=== PATIENT | female | born 1990 | race Caucasian/White ===

== ENCOUNTER 2024-08-30 15:29 | Emergency (ER) | payer MEDICAID, SELFPAY ==
[2024-08-30 15:57] VITALS: BP 108/66; PULSE 52; RESP 16; TEMP 37.1; O2SAT 99; BMI 26.1
[2024-08-30 16:15] VITALS: BP 129/95; PULSE 68; RESP 16; O2SAT 95
--- NOTE | 2024-08-30 16:16 | W.ED.ANIMALB ---
HPI - Animal Bite General: Chief Complaint: Animal Bite Stated Complaint: animal bite rt index finger Time Seen by Provider: 08/30/24 16:07 History of Present Illness: 34-year-old female who presents to the emergency room complaining of a cat bite to her right index finger occurred yesterday. She was seen in outpatient clinic locally where she had her tetanus shot and was prescribed some antibiotics just before coming to the ER she has not yet picked them up she is unsure what they are. The cat was unknown to her it was a stray she tried to pickling solution maker when it bit her finger. She presents here to initiate her rabies vaccinations. Associated symptoms: Reports chills and fever(s) Related Data Home Medications ?Medication ?Instructions ?Recorded ?Confirmed No Known Home Medications 08/30/24 08/30/24 Allergies Allergy/AdvReac Type Severity Reaction Status Date / Time No Known Allergies Allergy Verified 08/30/24 16:01 Review of Systems Const: Reports: fever(s) and chills Physical Exam Extremity: OTHER: Right index finger moderately swollen multiple puncture wounds no drainage no lymphatic streaking no epitrochlear or axillary lymph nodes noted Course Vital Signs: Vital signs: Vital Signs Temperature 98.8 F 08/30/24 15:57 Pulse Rate 84 08/30/24 16:45 Respiratory Rate 16 08/30/24 16:15 Blood Pressure 98/66 08/30/24 16:45 Pulse Oximetry 97 08/30/24 16:45 Oxygen Delivery Me thod Room Air 08/30/24 16:15 MDM - Animal Bite Medical Decision Making Rabies immunoglobulin and vaccine given. Patient given schedule for the remainder of the vaccinations. No radiology studies performed this visit Discharge Plan Discharge Patient Disposition: Home Clinical Impression: Cat bite, Need for post exposure prophylaxis for rabies Condition: Stable Prescriptions: No Action No Known Home Medications Discharge Orders: Discharge ED (Routine); Ordered 08/30/24 Ordered By: Hector Moore Referrals: Vijaya Bianchi FNP [Primary Care Provider] - Discharge Diet: Usual diet Discharge Activity: Resume usual activity Patient Instructions: Rabies Vaccine (By injection), Rabies Immune Globulin (By injection), Rabies (ED), Opioid Safety, Pain Management Activity Restrictions/Additional Instructions: Thank you for choosing [facility] for your healthcare needs today. It is very important that you follow up as instructed or that you return to the Emergency Department should you have concerns or if your condition changes or worsens in any way. You are seen in the emergency room after a cat bite. Since you have already been prescribed antibiotics and given a tetanus this was not addressed during your visit. I do recommend that you complete the course of antibiotics that you are prescribed at the walk-in clinic. You were started on rabies vaccination today. You were given information further remainder of the vaccine series. You should complete the full series. 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
[2024-08-30] MEDS: rabies IG 300 unit/mL SDV 1 mL 1410 UNIT IM (16:36)
[2024-08-30] MEDS: rabies vaccine 2.5 unit SDV IM (16:36)
[2024-08-30 16:45] VITALS: BP 98/66; PULSE 84; O2SAT 97
== END 2024-08-30 16:46 | disposition home or self-care (01) ==
PROVIDERS: Emergency Provider Family Medicine; PCP Registered Nurse
DX: S61.250A Open bite of right index finger without damage to nail, initial encounter (principal); W55.01XA Bitten by cat, initial encounter; Z20.3 Contact with and (suspected) exposure to rabies; Z29.14 Encounter for prophylactic rabies immune globulin
CPT/HCPCS: 90375; 90471; 90675; 96372; 99283

== ENCOUNTER 2024-09-02 15:47 | Oncology outpatient (recurring) (ONCR) | payer MEDICAID, SELFPAY ==
[2024-09-02] MEDS: rabies vaccine 2.5 unit SDV IM (16:03)
== END 2024-09-04 23:59 | disposition home or self-care (01) ==
PROVIDERS: PCP Registered Nurse; Visit Provider Family Medicine
DX: Z23 Encounter for immunization (principal); Z20.3 Contact with and (suspected) exposure to rabies; W55.01XA Bitten by cat, initial encounter
CPT/HCPCS: 90471; 90675

== ENCOUNTER → 2024-09-05 15:20 | Outpatient (BNVA) | payer MEDICAID, SELFPAY | PROVIDERS: PCP Registered Nurse; Visit Provider Obstetrics & Gynecology | DX: Z00.00 Encounter for general adult medical examination without abnormal findings (principal) | CPT/HCPCS: 87624 ==

== ENCOUNTER 2024-09-13 08:58 | Oncology outpatient (recurring) (ONCR) | payer MEDICAID, SELFPAY ==
[2024-09-06] MEDS: rabies vaccine 2.5 unit SDV IM (11:16)
[2024-09-13] MEDS: rabies vaccine 2.5 unit SDV IM (09:07)
[2024-09-13 09:16] VITALS: BP 109/71; PULSE 72; RESP 17; TEMP 37.2; O2SAT 98
== END 2024-10-05 23:59 | disposition home or self-care (01) ==
PROVIDERS: PCP Registered Nurse; Visit Provider Family Medicine
DX: Z20.3 Contact with and (suspected) exposure to rabies (principal); Z23 Encounter for immunization; S61.250A Open bite of right index finger without damage to nail, initial encounter; W55.01XA Bitten by cat, initial encounter
CPT/HCPCS: 90471; 90675

== ENCOUNTER 2025-03-25 08:14 | Day surgery (SDC) | payer MEDICAID, SELFPAY ==
[2025-03-25] VITALS (11 sets, daily range): BP systolic 94–134; BP diastolic 56–79; PULSE 53–79; RESP 16–18; TEMP 36.2–36.8; O2SAT 100; BMI 24.1
--- NOTE | 2025-03-25 00:35 | W.PM.OPSFHP ---
Same Day Surgery H&P Indication for Procedure/HPI DATE OF PROCEDURE: March 25, 2025 CHIEF COMPLAINT/INDICATIONFOR SURGICAL PROCEDURE: desires permanent sterilization; removal of intrauterine device PREOP DIAGNOSIS: desires permanent sterilization; removal of intrauterine device PLANNED PROCEDURE: Operation Date: 03/25/25 09:45 Proposed Procedures p Laparoscopic BILATERAL Salpingectomy(Bilateral) - Raffy Chappell MD Medications/Allergies* Home Medications ?Medication ?Instructions ?Recorded ?Confirmed ?Type atorvastatin 20 mg tablet (Lipitor) 20 mg PO DAILY 09/05/24 03/24/25 History bupropion HCl 150 mg 24 hr tablet, 150 mg PO QAM 09/05/24 03/24/25 History extended release (Wellbutrin XL) Allergies/Adverse Reactions Allergy/AdvReac Type Severity Reaction Status Date / Time No Known Allergies Allergy Verified 03/24/25 12:20 Pertinent History/Comorbid Conditions* Family History (Updated 09/05/24 @ 14:34 by Harriet Elaine RN) Diabetes Grandfather Heart disease Grandmother Grandfather Thyroid disease Mother Social History Smoking and tobacco/nicotine status: current every day tobacco/nicotine user Pertinent Exam Findings alert, oriented x 3, clear to auscultation bilaterally and regular rate & rhythm Recommendations Surgery/Procedure today Coding Level of Care Code Acute Code for Chg Fwd
[2025-03-25 08:59] LABS: OR HCG Qualitative Urine Negative (Negative)
--- NOTE | 2025-03-25 08:59 | ANES.PREANE2 ---
Pre-Anesthetic Assessment Height/Weight: Height 5 ft 5 in Weight 145 lb Temp Pulse Resp BP Pulse Ox O2 Del Method 98.3 F 77 16 112/63 100 Room Air 03/25/25 08:45 03/25/25 08:45 03/25/25 08:45 03/25/25 08:45 03/25/25 08:45 03/25/25 08:45 Preop Diagnosis: desires permanent sterilization Operation Date: 03/25/25 09:45 Proposed Procedures p Laparoscopic BILATERAL Salpingectomy(Bilateral) - Raffy Chappell MD Was Beta Jono taken within 24 hours: N/A Was Clonidine taken within 24 hours: N/A Last intake: Intake Last Liquid Date 03/24/25 Last Liquid Time 21:00 Last Solid Date 03/24/25 Last Solid Time 19:00 Social No alcohol and No tobacco Exam alert, oriented x 3, clear to auscultation bilaterally and regular rate & rhythm Airway Submandibular: within normal limits Cervical ROM: within normal limits Mallampati: Class II Dentition: full Anesthetic Plan ASA status: 2 Anesthesia: General Other: No prior issues with anesthesia NPO since yesterday evening Current smoker, nicotine and marijuana Denies any cardiac issues METs greater than 4 Plan for GETA Medications/Allergies Home Medications ?Medication ?Instructions ?Recorded ?Confirmed ?Last Taken ?Type atorvastatin 20 mg tablet (Lipitor) 20 mg PO DAILY 09/05/24 03/25/25 03/24/25 History bupropion HCl 150 mg 24 hr tablet, 150 mg PO QAM 09/05/24 03/25/25 03/24/25 History extended release (Wellbutrin XL) Allergies Allergy/AdvReac Type Severity Reaction Status Date / Time No Known Allergies Allergy Verified 03/24/25 12:20 Current Medications Generic Name Dose Route Start Last Admin Trade Name Freq PRN Reason Stop Dose Admin Sodium Chloride 1,000 mls @ 30 mls/hr 03/25/25 08:30 03/25/25 08:44 Sodium Chloride 0.9% IV 03/26/25 08:29 30 mls/hr .Q24H MILA Administration PFSH Anesthesia Family History (Updated 09/05/24 @ 14:34 by Harriet Elaine RN) Mother Thyroid disease Grandmother Heart disease Grandfather Heart disease Diabetes Social History Smoking and tobacco/nicotine status: current every day tobacco/nicotine user Female Reproductive History Date of last menstrual period: 03/21/25
--- NOTE | 2025-03-25 10:38 | W.PM.OPSUD ---
Surgery/Procedure H&P Update DATE OF PROCEDURE: March 25, 2025 DATE H&P PERFORMED: 03/25/25 H&P UPDATE INFORMATION: I have reviewed H&P completed within last 30 days, I have examined patient prior to procedure and No changes to prior documentation PREOP DIAGNOSIS: desires permanent sterilization PLANNED PROCEDURE: Operation Date: 03/25/25 09:45 Proposed Procedures p Laparoscopic BILATERAL Salpingectomy(Bilateral) - Raffy Chappell MD
[2025-03-25] MEDS: fentaNYL 50 mcg/mL INJ 2mL IVP (12:45)
[2025-03-25] MEDS: oxyCODONE-APAP 5-325 mg Tablet 1 TAB PO (13:12)
--- NOTE | 2025-03-25 13:40 | ANE.PACU2 ---
Inpatient post-anesthesia follow up: Airway intact: Yes Vital signs: Temperature 97.2 F Pulse Rate 61 Respiratory Rate 18 Blood Pressure 131/75 Pulse Oximetry 100 Oxygen Delivery Me thod Room Air Oxygen Flow Rate Fraction of Inspir ed Oxygen Hydration adequate: Yes Nausea and vomiting: No Pain level: 1 Mental status: Baseline
--- NOTE | 2025-03-25 14:15 | P.OP_ITS ---
Operative Report Date of procedure: March 25, 2025 Pre-op diagnosis: desires permanent sterilization wants removal of intrauterine device Post-op diagnosis: same Post-op findings: normal uterus bilateral fallopian tubes dilated with clubbed fimbriae left ovary with 4 cm clear ovarian cyst normal right ovary filmy adhesions involving the fallopian tubes and ovaries Paragard intrauterine device, complete and intact Procedure done: laparoscopic bilateral salpingectomy removal of intrauterine device Implants: none Specimens removed/disposition: bilateral fallopian tubes intrauterine device, complete and intact, discarded Surgeon: Raffy Chappell MD Flat Sorter Processor: Rm Borden MD Anesthesia: General Estimated blood loss (mL): 5 Complications: none Findings: see above Condition: stable Disposition: PACU Brief History: 34 y.o. desires permanent sterilization Procedure: Informed consent was obtained. The patient was taken to the OR and placed on the table. General endotracheal anesthesia was induced. The abdomen was then prepped and draped in the usual fashion. A 5 mm subumbilical skin incision was made. A 5 mm trocar with sheath was then inserted into the peritoneal cavity under direct visualization with the laparoscope. After confirming intraperitoneal position, pneumoperitoneum was achieved. Two separate 5 mm incisions were made in the right and left mid- quadrants. 5 mm trocars with sheaths were then inserted into the peritoneal cavity under direct visualization with the laparoscope. Uterus was seen to be normal. Bilateral fallopian tubes were noted to be mildly dilated with clubbed fimbriae and filmy adhesions to the ovaries. The left ovary was noted to have a 4 cm clear ovarian cyst. The right fallopian tube was then identified. Starting at the fimbrial end, the mesosalpinx was then coagulated and cut using the Ligasure. The right fallopian tube was excised and removed via one of the ports. This was sent to pathology. There was no bleeding seen. Similarly, the left fallopian tube was identified. The left fallopian tube was excised and removed, sent to pathology. There was no bleeding. All instruments were then removed from the peritoneal cavity after the pneumoperitoneum was allowed to escape. The skin incisions were closed using 4- O monocryl in subcuticular fashion. Dermabond was applied. The patient was then placed in lithotomy position. A speculum was placed in the vagina. The intrauterine device string was identified and the intrauterine device was removed complete and discarded. The patient was then placed supine and awakened, taken the the PACU in good condition. Postop condition: stable EBL: 5 cc Complications: none Sponge, needles, and instruments counts correct x two
== END 2025-03-25 13:40 | disposition home or self-care (01) ==
PROVIDERS: Student in an Organized Health Care Education/Training Program; PCP Family Medicine; Visit Provider Obstetrics & Gynecology
PROC: (CPT 58661; principal; 2025-03-25 09:35)
PROC: 0UPD8HZ Removal of Contraceptive Device from Uterus and Cervix, Via Natural or Artificial Opening Endoscopic (ICD-10-PCS; CPT 58301; 2025-03-25 09:35)
DX: Z30.2 Encounter for sterilization (principal); N70.91 Salpingitis, unspecified; F17.200 Nicotine dependence, unspecified, uncomplicated; F12.90 Cannabis use, unspecified, uncomplicated
CPT/HCPCS: 58661; 81025; 88302; J1100; J2250; J2405; J2704; J3010; J3490; J7030; J9999